=== PATIENT | male | born 1960 | race Caucasian/White ===

== ENCOUNTER 2017-03-11 03:31 | Emergency (ER) | payer MEDICAID, OTHER ==
[2017-03-11] MEDS ORDERED: Ondansetron INJ* 2 MG/ML VIAL IV ONE (04:47)
[2017-03-11] MEDS ORDERED: Morphine INJ* 4 MG/ML 1 ML CARPUJECT IV ONE (04:47)
[2017-03-11] MEDS ORDERED: NS 0.9% 1000 ML* 2,000 ML IV ONE (04:47)
[2017-03-11 05:19] LABS: Hematocrit 42 % (42-52); Hemoglobin 14.2 g/dl (14.0-18.0); Mean Corpuscular HGB Conc 34 g/dl (31-36); Mean Corpuscular Hemoglobin 30 pg (27-31); Mean Corpuscular Volume 89 fL (80-94); Mean Platelet Volume 8 um3 (7.4-10.4); Red Blood Count 4.75 10^6/ul (4.0-5.4); Red Cell Distribution Width 13 % (10.5-15)
[2017-03-11 05:35] LABS: Albumin 4.3 g/dL (3.2-5.2); BUN/Creatinine Ratio 11.3 (8-20); C Reactive Protein 5.5 mg/L (< 5.00); Calcium 9.5 mg/dL (8.6-10.3); EGFR African American 128.1 (>60); EGFR Non-African American 99.6 (>60); Globulin 2.9 g/dL (2-4); Potassium 3.8 mmol/L (3.5-5.0); Total Protein 7.2 g/dL (6.4-8.9)
[2017-03-11 06:28] LABS: TSH (Thyroid Stimulating Horm) 0.74 mcIU/mL (0.34-5.60)
[2017-03-11 06:54] LABS: Urine Bilirubin Negative (Negative); Urine Glucose Negative (Negative); Urine Nitrite Negative (Negative)
--- NOTE | 2017-03-11 06:58 | ED ---
Micah Patricio Nikita, scribed for Dionisio Chavarria MD on 03/11/17 at 0434 . Back Pain - HPI Summary HPI Summary: This patient is a 56 year old M presenting to ED with a chief complaint of R lower/middle back pain since 3 days ago in the morning. Pt fell asleep sitting up last night and had woken up this morning with pain that has progressively gotten worse. The CC is described as radiating to his middle chest and R shoulder. Dull, burning feeling at rest but becomes sharp, clenching pain when moving/twisting. The patient rates the pain 10/10 in severity at 0130 this morning. Symptoms aggravated by breathing, moving, lying down, coughing, and sneezing. Symptoms alleviated by nothing. Patient reports SOB (secondary to pain ). Patient denies recent injury and abdominal pain. Pt has been having trouble with reflux and heart burn. - History of Current Complaint Chief Complaint: EDBackInjuryPain Stated Complaint: RIGHT SIDED PAIN/CHEST DISCOMFORT Time Seen by Provider: 03/11/17 04:20 Hx Obtained From: Patient Onset/Duration: Sudden Onset, Lasting Days, Still Present, Worse Since Onset/Duration: Started Days Ago, Atraumatic, Still Present Timing: Constant, Lasting Days Severity Initially: Mild Severity Currently: Severe Pain Intensity: 10 Pain Scale Used: 0-10 Numeric Character: Sharp, Dull, Burning Aggravating Symptom(s): Movement, Cough, Other - sneezing, breathing, lying down Alleviating Symptom(s): Nothing Associated Signs And Symptoms: Positive: Other - Patient reports SOB (secondary to pain). Patient denies recent injury and abdominal pain. - Allergies/Home Medications Allergies/Adverse Reactions: Allergies Allergy/AdvReac Type Severity Reaction Status Date / Time No Known Allergies Allergy Verified 03/11/17 03:38 PMH/Surg Hx/FS Hx/Imm Hx Endocrine/Hematology History: Denies: Hx Diabetes Cardiovascular History: Reports: Other Cardiovascular Problems/Disorders - prolapsed mitral valve Denies: Hx Coronary Artery Disease, Hx Hypertension Infectious Disease History: No Infectious Disease History: Denies: Traveled Outside the [place] in Last 30 Days - Family History Known Family History: Positive: Cardiac Disease, Hypertension, Diabetes - Social History Alcohol Use: Rare Substance Use Type: Reports: None Smoking Status (MU): Never Smoked Tobacco Review of Systems Positive: Shortness Of Breath - secondary to pain Positive: Other - pt has been having trouble with reflux and heart burn. Negative: Abdominal Pain Positive: Other - R lower/middle back pain that radiates to mid chest and R shoulder; denies recent injury All Other Systems Reviewed And Are Negative: Yes Physical Exam Triage Information Reviewed: Yes Vital Signs On Initial Exam: Initial Vitals Temp Pulse Resp BP Pulse Ox 100.5 F 85 16 134/69 96 03/11/17 03:34 03/11/17 03:34 03/11/17 03:34 03/11/17 03:34 03/11/17 03:34 Vital Signs Reviewed: Yes Appearance: Positive: Well-Appearing, Pain Distress - mild Skin: Positive: Warm, Skin Color Reflects Adequate Perfusion, Dry Head/Face: Positive: Normal Head/Face Inspection Eyes: Positive: EOMI, CHRISTIE ENT: Positive: Normal ENT inspection Neck: Positive: Supple, Nontender Respiratory/Lung Sounds: Positive: Clear to Auscultation, Breath Sounds Present Cardiovascular: Positive: RRR Abdomen Description: Positive: Nontender, Soft Bowel Sounds: Positive: Present Musculoskeletal: Positive: Strength/ROM Intact, Other - Mildly tender at R lower ribs Neurological: Positive: Normal, Sensory/Motor Intact, Alert, Oriented to Person Place, Time Psychiatric: Positive: Affect/Mood Appropriate - Ethel Coma Scale Coma Scale Total: 15 Diagnostics - Vital Signs Vital Signs Temp Pulse Resp BP Pulse Ox 03/11/17 03:34 100.5 F 85 16 134/69 96 - Laboratory Lab Results: Lab Results 03/11/17 03/11/17 03/11/17 Range/Units 05:09 05:09 05:09 WBC (3.5-10.8) 10^3/ul RBC (4.0-5.4) 10^6/ul Hgb (14.0-18.0) g/dl Hct (42-52) % MCV (80-94) fL MCH (27-31) pg MCHC (31-36) g/dl RDW (10.5-15) % Plt Count (150-450) 10^3/ul MPV (7.4-10.4) um3 Neut % (Auto) (38-83) % Lymph % (Auto) (25-47) % Forest % (Auto) (1-9) % Eos % (Auto) (0-6) % Baso % (Auto) (0-2) % Absolute Neuts (auto) (1.5-7.7) 10^3/ul Absolute Lymphs (auto) (1.0-4.8) 10^3/ul Absolute Monos (auto) (0-0.8) 10^3/ul Absolute Eos (auto) (0-0.6) 10^3/ul Absolute Basos (auto) (0-0.2) 10^3/ul Absolute Nucleated RBC 10^3/ul Nucleated RBC % INR (Anticoag Therapy) 0.99 (0.89-1.11) APTT 33.2 (26.0-36.3) seconds Sodium 135 (133-145) mmol/L Potassium 3.8 (3.5-5.0) mmol/L Chloride 101 (101-111) mmol/L Carbon Dioxide 28 (22-32) mmol/L Anion Gap 6 (2-11) mmol/L BUN 9 (6-24) mg/dL Creatinine 0.80 (0.67-1.17) mg/dL Est GFR ( Amer) 128.1 (>60) Est GFR (Non-Af Amer) 99.6 (>60) BUN/Creatinine Ratio 11.3 (8-20) Glucose 97 (70-100) mg/dL Lactic Acid (0.5-2.0) mmol/L Calcium 9.5 (8.6-10.3) mg/dL Magnesium 2.0 (1.9-2.7) mg/dL Total Bilirubin 1.00 (0.2-1.0) mg/dL AST 18 (13-39) U/L ALT 14 (7-52) U/L Alkaline Phosphatase 71 (34-104) U/L Total Creatine Kinase 54 (10-223) U/L CK-MB (CK-2) 1.1 (0.6-6.3) ng/mL Troponin I 0.00 (<0.04) ng/mL C-Reactive Protein 5.50 H (< 5.00) mg/L B-Natriuretic Peptide 8 ( - 100) pg/mL Total Protein 7.2 (6.4-8.9) g/dL Albumin 4.3 (3.2-5.2) g/dL Globulin 2.9 (2-4) g/dL Albumin/Globulin Ratio 1.5 (1-3) Lipase 12 (11.0-82.0) U/L TSH 0.74 (0.34-5.60) mcIU/mL Urine Color Urine Appearance Urine pH (5-9) Ur Specific [place] (1.010-1.030) Urine Protein (Negative) Urine Ketones (Negative) Urine Blood (Negative) Urine Nitrate (Negative) Urine Bilirubin (Negative) Urine Urobilinogen (Negative) Ur Leukocyte Esterase (Negative) Urine Glucose (Negative) 03/11/17 03/11/17 03/11/17 Range/Units 05:09 05:09 06:44 WBC 12.0 H (3.5-10.8) 10^3/ul RBC 4.75 (4.0-5.4) 10^6/ul Hgb 14.2 (14.0-18.0) g/dl Hct 42 (42-52) % MCV 89 (80-94) fL MCH 30 (27-31) pg MCHC 34 (31-36) g/dl RDW 13 (10.5-15) % Plt Count 206 (150-450) 10^3/ul MPV 8 (7.4-10.4) um3 Neut % (Auto) 78.6 (38-83) % Lymph % (Auto) 11.3 L (25-47) % [place] % (Auto) 9.4 H (1-9) % Eos % (Auto) 0.3 (0-6) % Baso % (Auto) 0.4 (0-2) % Absolute Neuts (auto) 9.4 H (1.5-7.7) 10^3/ul Absolute Lymphs (auto) 1.4 (1.0-4.8) 10^3/ul Absolute Monos (auto) 1.1 H (0-0.8) 10^3/ul Absolute Eos (auto) 0 (0-0.6) 10^3/ul Absolute Basos (auto) 0.1 (0-0.2) 10^3/ul Absolute Nucleated RBC 0 10^3/ul Nucleated RBC % 0 INR (Anticoag Therapy) (0.89-1.11) APTT (26.0-36.3) seconds Sodium (133-145) mmol/L Potassium (3.5-5.0) mmol/L Chloride (101-111) mmol/L Carbon Dioxide (22-32) mmol/L Anion Gap (2-11) mmol/L BUN (6-24) mg/dL Creatinine (0.67-1.17) mg/dL Est GFR ( Amer) (>60) Est GFR (Non-Af Amer) (>60) BUN/Creatinine Ratio (8-20) Glucose (70-100) mg/dL Lactic Acid 0.7 (0.5-2.0) mmol/L Calcium (8.6-10.3) mg/dL Magnesium (1.9-2.7) mg/dL Total Bilirubin (0.2-1.0) mg/dL AST (13-39) U/L ALT (7-52) U/L Alkaline Phosphatase (34-104) U/L Total Creatine Kinase (10-223) U/L CK-MB (CK-2) (0.6-6.3) ng/mL Troponin I (<0.04) ng/mL C-Reactive Protein (< 5.00) mg/L B-Natriuretic Peptide ( - 100) pg/mL Total Protein (6.4-8.9) g/dL Albumin (3.2-5.2) g/dL Globulin (2-4) g/dL Albumin/Globulin Ratio (1-3) Lipase (11.0-82.0) U/L TSH (0.34-5.60) mcIU/mL Urine Color Straw Urine Appearance Clear Urine pH 7.0 (5-9) Ur Specific [place] 1.004 L (1.010-1.030) Urine Protein Negative (Negative) Urine Ketones Trace H (Negative) Urine Blood Negative (Negative) Urine Nitrate Negative (Negative) Urine Bilirubin Negative (Negative) Urine Urobilinogen Negative (Negative) Ur Leukocyte Esterase Negative (Negative) Urine Glucose Negative (Negative) Result Diagrams: 03/11/17 05:09 03/11/17 05:09 Lab Statement: Any lab studies that have been ordered have been reviewed, and results considered in the medical decision making process. - EKG 0458 Cardiac Rate: NL EKG Rhythm: Sinus Rhythm - 78 bpm Ectopy: None EKG Interpretation: nonspecific intraventricular conduction delay, baseline wander in , VII Back Pain Course/Dx - Course Assessment/Plan: This patient is a 56 year old M presenting to ED with a chief complaint of R lower/middle back pain since 3 days ago in the morning. Pt fell asleep sitting up last night and had woken up this morning with pain that has progressively gotten worse. The CC is described as radiating to his middle chest and R shoulder. Dull, burning feeling at rest but becomes sharp, clenching pain when moving/twisting. The patient rates the pain 10/10 in severity at 0130 this morning. Symptoms aggravated by breathing, moving, lying down, coughing, and sneezing. Symptoms alleviated by nothing. Patient reports SOB (secondary to pain). Patient denies recent injury and abdominal pain. Pt has been having trouble with reflux and heart burn. Medications reviewed. EKG reveals NSR at 78 bpm, nonspecific intraventricular conduction delay, baseline wander in and VII, and no ectopy. In the ED course, pt was given fluids, Morphine, and Zofran. DISPOSITION PENDING AT SHIFT CHANGE. - Diagnoses Provider Diagnoses: Right-sided chest pain Discharge - Discharge Plan Condition: Stable Disposition: OTHER Discharge Disposition Comment: . Referrals: Lorena DILLON,Christiano Roblero [Primary Care Provider] - The documentation as recorded by the Micah smith Nikita accurately reflects the service I personally performed and the decisions made by me, Dionisio Chaavrria MD.
[2017-03-11] MEDS ORDERED: Iohexol 350* (CONTRAST) 500 ML MDV IV ONE (07:06)
--- NOTE | 2017-03-11 08:06 | RAD ---
INDICATION: Right-sided chest and upper abdominal pain. COMPARISON: There are no prior studies available for comparison. TECHNIQUE: A CT angiogram of the chest and a CT of the abdomen and pelvis was performed with intravenous contrast following intravenous injection of 66 ml of Omnipaque 350 nonionic contrast. Contiguous axial sections were obtained from the lung apices through the symphysis pubis. Images were reconstructed in the coronal and sagittal planes. FINDINGS: CT ANGIOGRAM OF THE CHEST: The exam is slightly limited due to streak and motion artifact. No intraluminal filling defect or pulmonary embolism is seen. The heart is within normal limits in size. No pericardial effusion is present. The thoracic aorta is normal in caliber and demonstrates homogeneous contrast opacification without evidence for dissection. No significant enlarged mediastinal or hilar lymph nodes are seen. The lungs are clear. No pleural effusion is seen. CT OF THE ABDOMEN AND PELVIS: The liver and spleen are normal in size without significant focal abnormality. No calcified gallstones are seen. No intra or extra hepatic ductal distention is noted. The pancreas is within normal limits in size. No ductal distention or abnormal calcifications are noted. The kidneys and adrenal glands are normal in size. No hydronephrosis is seen. No significant focal renal abnormality is seen. The prostate gland is enlarged measuring up to 4.8 cm in diameter. The abdominal aorta is normal in caliber. No significant enlarged retroperitoneal lymph nodes are seen. The stomach, small and large bowel appear nondistended. The appendix appears to be within normal limits. There is a moderate to large amount retained stool. There are few scattered diverticula. There is no evidence for diverticulitis or colitis. No free intraperitoneal air or fluid is seen. No significant focal osseous abnormality is seen. IMPRESSION: 1. SLIGHTLY LIMITED EXAM, NO EVIDENCE FOR PULMONARY EMBOLISM OR AORTIC DISSECTION. 2. NO EVIDENCE FOR ACUTE FINDING IN THE ABDOMEN. 3. MODERATE TO LARGE AMOUNT RETAINED STOOL. 4. PROSTATE HYPERTROPHY.
--- NOTE | 2017-03-11 08:08 | RAD ---
HISTORY: Back pain COMPARISONS: None TECHNIQUE: Multiple contiguous axial CT scans were obtained of the lumbar spine with intravenous contrast, with coronal and sagittal multiplanar reformations. FINDINGS: SPINAL CANAL: Evaluation of the central canal is limited on CT technique; however, there is no obvious canalicular mass or epidural hemorrhage. ALIGNMENT: The alignment is normal. VERTEBRAL BODIES: The vertebral bodies are preserved in height. The bones are normal in attenuation. Incidentally noted are accessory ribs of L1. JOINTS: There is mild facet hypertrophic change. MUSCULATURE: Unremarkable INTERVERTEBRAL DISCS: There is mild diffuse loss of intervertebral disc height throughout the spine. AXIAL IMAGES: T12-L1: There is no osseous neural foraminal narrowing or central canal stenosis. L1-L2: There is no osseous neural foraminal narrowing or central canal stenosis. L2-L3: There is no osseous neural foraminal narrowing or central canal stenosis. L3-L4: There is no osseous neural foraminal narrowing or central canal stenosis. L4-L5: There is no osseous neural foraminal narrowing or central canal stenosis. L5-S1: There is no osseous neural foraminal narrowing or central canal stenosis. SOFT TISSUES: The visualized soft tissues of the abdomen are unremarkable. OTHER: None IMPRESSION: MILD DEGENERATIVE CHANGES. NO OSSEOUS NEURAL FORAMINAL NARROWING OR CENTRAL CANAL STENOSIS.
--- NOTE | 2017-03-11 08:11 | RAD ---
HISTORY: Chest pain, right upper quadrant pain, back pain COMPARISONS: None TECHNIQUE: Multiple contiguous axial CT scans were obtained of the thoracic spine with intravenous contrast, with coronal and sagittal multiplanar reformations. FINDINGS: SPINAL CANAL: Evaluation of the central canal is limited on CT technique; however, there is no obvious canalicular mass or epidural hemorrhage. ALIGNMENT: The alignment is normal. VERTEBRAL BODIES: The vertebral bodies are preserved in height. The bones are normal in attenuation. There is minimal anterolateral marginal osteophyte formation JOINTS: There is no subluxation or dislocation. MUSCULATURE: Unremarkable INTERVERTEBRAL DISCS: There is mild diffuse loss of intervertebral disc height throughout the spine. AXIAL IMAGES: There is no osseous central canal stenosis or neuroforaminal narrowing. SOFT TISSUES: The visualized soft tissues of the chest and abdomen are unremarkable. OTHER: Incidentally noted are accessory ribs of L1. IMPRESSION: MINIMAL DEGENERATIVE CHANGES. NO OSSEOUS NEURAL FORAMINAL AREA OR CENTRAL CANAL STENOSIS.
[2017-03-11 10:14] VITALS: BP 103/62
--- NOTE | 2017-03-11 10:44 | CONSULT ---
Consult Consult: Mr. Umana has had a right sided back discomfort for 3 or 4 days which periodically becomes a severe pain that radiates around to the front and up into his right shoulder. that happened this AM and was waning by the time he got here. He was turned over to me with CTA pending to R/O dissection or aneurysm. It returned negative as did his other tests. I spoke with him at some length. His pain is not reproducible. I think this is a musculoskeletal pain. Biliary colic is a possibility. I will treat him with NSAIDs and Ativan as a muscle relaxer and encourage close F/U. He is D/C'd in stable condition with a diagnosis of back pain.
== END 2017-03-11 10:15 ==
LOC: ED 03:31
DX: R07.9 Chest pain, unspecified (principal); R05 Cough; R06.02 Shortness of breath
CPT/HCPCS: 36415; 71275; 72128; 72131; 74177; 80053; 81003; 82550; 82553; 83605; 83690; 83735; 83880; 84443; 84484; 85025; 85610; 85730; 86140; 93005; 96374; 99282; J2270; J2405; Q9967